=== PATIENT | female | born 1960 | race African-American/Black ===

== ENCOUNTER → 2017-06-26 | Outpatient (CLI) | payer BC ==
[2017-06-26 13:36] LABS: ADD MAN DIFF? NO
[2017-06-26 13:39] LABS: BASO # 0.1 x10^3/uL (0.0-0.2); BASO % 1 % (0-3); EOS # 0.2 x10^3/uL (0.0-0.7); EOS % 3 % (0-3); HEMATOCRIT 39.7 % (36.0-47.0); HEMOGLOBIN 13.2 g/dL (12.0-15.5); LYMPH # 2.7 x10^3/uL (1.0-4.8); LYMPH % 41 % (24-48); MEAN CORPUSCULAR HEMOGLOBIN 24 pg (25-35); MEAN CORPUSCULAR HGB CONC 33 g/dL (31-37); MEAN CORPUSCULAR VOLUME 73 fL (79-100); MONO # 0.5 x10^3/uL (0.0-1.1); MONO % 7 % (0-9); NEUT # 3.2 x10^3uL (1.8-7.7); NEUT % 48 % (31-73); PLATELET COUNT 274 x10^3/uL (140-400); RED BLOOD COUNT 5.44 x10^6/uL (3.50-5.40); RED CELL DISTRIBUTION WIDTH 14.7 % (11.5-14.5); WHITE BLOOD COUNT 6.6 x10^3/uL (4.0-11.0)
[2017-06-26 13:42] LABS: BILIRUBIN,URINE NEGATIVE (NEG); CLARITY,URINE CLEAR; COLOR,URINE YELLOW; GLUCOSE,URINE NEGATIVE (NEG); NITRITE,URINE NEGATIVE (NEG); PROTEIN,URINE NEGATIVE (NEG-TRACE); UROBILINOGEN,URINE 0.2 mg/dL (0.2 mg/dL)
[2017-06-26 13:52] LABS: BACTERIA,URINE FEW /HPF (0-FEW); SQUAMOUS EPITHELIAL CELL,UR MOD /LPF; WBC,URINE 0 /HPF (0-4)
[2017-06-26 13:59] LABS: ALBUMIN 3.5 g/dL (3.4-5.0); ALBUMIN/GLOBULIN RATIO 0.9 (1.0-1.7); ALK PHOS 48 U/L (46-116); ALT (SGPT) 21 U/L (14-59); ANION GAP 8 (6-14); AST (SGOT) 23 U/L (15-37); BLOOD UREA NITROGEN 12 mg/dL (7-20); BUN/CREATININE RATIO 17 (6-20); CALCIUM 8.8 mg/dL (8.5-10.1); CARBON DIOXIDE 29 mmol/L (21-32); CHLORIDE 104 mmol/L (98-107); CREATININE 0.7 mg/dL (0.6-1.0); GFR 105.1; GLUCOSE 85 mg/dL (70-99); POTASSIUM 3.8 mmol/L (3.5-5.1); SODIUM 141 mmol/L (136-145); TOTAL BILIRUBIN 0.3 mg/dL (0.2-1.0); TOTAL PROTEIN 7.4 g/dL (6.4-8.2)
== END | disposition home or self-care (01) ==
LOC: SURGPAT 12:20
DX: Z01.818 Encounter for other preprocedural examination (principal)
CPT/HCPCS: 36415; 71046; 80053; 81001; 85025; 93005

== ENCOUNTER 2017-07-05 05:48 | Observation (INO) | payer BC ==
[2017-07-05] MEDS ORDERED: ceFAZolin 2GM PREMIX 2 GM/50 ML BAG IV ×2 (06:00)
[2017-07-05] MEDS ORDERED: MIDAZOLAM HCL/PF 2 MG/2 ML VIAL. IV ×2 (06:15)
[2017-07-05] MEDS ORDERED: LIDOCAINE 1% PF 2 ML VIAL. ID ×4 (06:15→07:15)
[2017-07-05] MEDS ORDERED: fentaNYL PF VIAL 100 MCG/2 ML VIAL IV ×8 (06:15→07:15)
[2017-07-05] MEDS ORDERED: ESTROGENS, CONJ VAGINAL CREAM 30GM TUBE. ×2 (06:44)
[2017-07-05] MEDS ORDERED: METHYLENE BLUE 1% 10 ML VIAL. ×2 (06:44)
[2017-07-05] MEDS: IV RINGERS,LACTATED 1000ML 1,000 ML IV ×2 (06:55)
[2017-07-05] MEDS ORDERED: IV RINGERS,LACTATED 1000ML 1,000 ML IV ×2 (07:10)
[2017-07-05] MEDS ORDERED: PROPOFOL 20 ML IV ×2 (07:14)
[2017-07-05] MEDS ORDERED: ROCURONIUM 50 MG/5 ML VIAL. ×2 (07:14)
[2017-07-05] MEDS ORDERED: MIDAZOLAM HCL/PF 2 MG/2 ML VIAL. ×2 (07:14)
[2017-07-05] MEDS ORDERED: ONDANSETRON PF 4 MG/2 ML VIAL. IV ×4 (07:15→10:00)
[2017-07-05] MEDS ORDERED: HYDROmorphone 2 MG/ML VIAL IV ×2 (07:15)
[2017-07-05] MEDS ORDERED: LIDOCAINE 2% PF Vial for OR 5 ML VIAL. ×2 (07:15)
[2017-07-05] MEDS ORDERED: PROCHLORPERAZINE 10 MG/2 ML VIAL. IV ×2 (07:15)
[2017-07-05] MEDS ORDERED: MORPHINE SULFATE 2 MG/ML DISP.SYRIN. IV ×4 (07:15→10:00)
[2017-07-05] MEDS ORDERED: DEXAMETHASONE SOD PHOS 20 MG/5 ML VIAL. ×2 (07:15)
[2017-07-05] MEDS: BUPIVACAINE-EPI 0.25%-1:200000 50 ML VIAL. ×2 (07:56)
[2017-07-05] MEDS ORDERED: NEOSTIGMINE METHYLSULFATE 5 MG/5 ML SYRINGE. ×2 (08:43)
[2017-07-05] MEDS ORDERED: SEVOFLURANE > 120 MINUTES. IH ×2 (08:43)
[2017-07-05] MEDS ORDERED: GLYCOPYRROLATE 1 MG/5 ML VIAL. ×2 (08:43)
[2017-07-05] MEDS ORDERED: KETOROLAC 30 MG/ML INJ FOR OR. INJ ×2 (08:53)
[2017-07-05] MEDS ORDERED: fentaNYL PF VIAL 100 MCG/2 ML VIAL ×4 (09:41→09:55)
[2017-07-05] MEDS ORDERED: PROCHLORPERAZINE 10 MG/2 ML VIAL. ×2 (09:56)
[2017-07-05] MEDS ORDERED: ZOLPIDEM 5 MG TABLET. PO ×2 (10:00)
[2017-07-05] MEDS ORDERED: diphenhydrAMINE 50 MG/ML VIAL IV ×2 (10:00)
[2017-07-05] MEDS ORDERED: SIMETHICONE 80 MG TAB.CHEW PO ×2 (10:00)
[2017-07-05] MEDS ORDERED: 0.9 % SODIUM CHLORIDE 10 ML DISP.SYRIN. IV ×2 (10:00)
[2017-07-05] MEDS ORDERED: CALCIUM CARBONATE 500 MG TAB.CHEW PO ×2 (10:00)
[2017-07-05] MEDS ORDERED: LACTULOSE 20 GM/30 ML SOLUTION. PO ×2 (10:00)
[2017-07-05] MEDS ORDERED: diphenhydrAMINE HCL 25 MG CAPSULE PO ×2 (10:00)
[2017-07-05] MEDS ORDERED: MAG HYDROX/ALUMINUM HYD/SIMETH 30 ML ORAL.SUSP PO ×2 (10:00)
[2017-07-05] MEDS ORDERED: MAGNESIUM HYDROXIDE 2,400 MG/30 ML ORAL.SUSP. PO ×2 (10:00)
[2017-07-05] MEDS ORDERED: NALOXONE 0.4 MG/ML VIAL. IV ×2 (10:00)
[2017-07-05] MEDS: HYDROcodone/APAP 5/325MG 1 TAB TABLET PO ×2 (14:38)
[2017-07-05] MEDS: KETOROLAC 30 MG/ML INJ. IV ×2 (14:39)
[2017-07-05] MEDS: oxyCODONE/APAP 5/325 1 TAB TABLET PO ×2 (19:35)
[2017-07-06 06:41] LABS: HEMATOCRIT 35.7 % (36.0-47.0)
[2017-07-06 07:12] LABS: ANION GAP 9 (6-14); BLOOD UREA NITROGEN 14 mg/dL (7-20); CALCIUM 9.1 mg/dL (8.5-10.1); CARBON DIOXIDE 25 mmol/L (21-32); CHLORIDE 105 mmol/L (98-107); CREATININE 0.9 mg/dL (0.6-1.0); GFR 78.7; GLUCOSE 95 mg/dL (70-99); SODIUM 139 mmol/L (136-145)
[2017-07-06] MEDS: oxyCODONE/APAP 5/325 1 TAB TABLET PO ×2 (09:17)
== END 2017-07-06 10:55 | disposition home or self-care (01) ==
LOC: SURG 05:48 → 3 NORTH 09:57
DX: N92.4 Excessive bleeding in the premenopausal period (principal); D25.9 Leiomyoma of uterus, unspecified
CPT/HCPCS: 36415; 80048; 85014; 86701; 86850; 86900; 86901; 88307; 96374; C1769; G0378; G0379; J0690; J0780; J1100; J1885; J2250; J2405; J2704; J2710; J3010; J3490; J7030; J7120; Q9968